=== PATIENT | male | born 1930 | race Caucasian/White ===

== ENCOUNTER 2017-05-27 18:02 | Inpatient (IN) | payer OTHER ==
[~2017-05-27] VITALS: Ht 185.4 cm; Wt 68.0 kg
--- NOTE | ~2017-05-27 | EKG ---
[place] [address] [address] [facility] [place] [address] ELECTROCARDIOGRAM REPORT Name: LUIS PEARSON Room #: 411-P ADM IN M.R.#: [id number] Admission: 05/27/17 Attend Phys: Moses Dennis DO Discharge: Date of : 32 Report #: [id number] THIS REPORT FOR: //name// [facility] ED Test Date: 2017-05-27 Test Time: 18:41:55 Pat Name: LUIS PEARSON Department: Room: 411 Gender: M [employer]: YUMIKO : 1930 Requested By: Lopez Mazariegos Order Number: [id number] MD: Tiago Corral Measurements Intervals [place] Rate: 116 P: AL: QRS: 114 QRSD: 99 T: 77 QT: 332 QTc: 462 Interpretive Statements Atrial fibrillation Premature supraventricular complexes Poor R wave progression No previous ECGs available for comparison Electronically Signed On 05-28-2017 14:28:12 FINANCIAL INSTITUTION PRESIDENT by Tiago Corral [email or web address] <ELECTRONICALLY SIGNED> By: Tiago Corral MD, [facility] 05/28/17 1428 1841 1841 Tiago Corral MD, FACC /EPI
--- NOTE | ~2017-05-27 | EKG ---
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
[2017-05-27 18:03] VITALS: BP 151/86
[2017-05-27] MEDS ORDERED: CHILDREN'S ASPI81 M1 PO (18:21)
[2017-05-27] MEDS ORDERED: DUREZOL5 ML OPHTHALMIC (18:22)
[2017-05-27] MEDS ORDERED: COMBIGAN EYE DR10 ML OPHTHALMIC (18:22)
[2017-05-27] MEDS ORDERED: PULMICORT0.5 MG/22 INH (18:22)
[2017-05-27] MEDS ORDERED: LATANOPROST 0.2.5 ML OPHTHALMIC (18:25)
[2017-05-27] MEDS ORDERED: TOPROL XL25 MG PO (18:25)
[2017-05-27] MEDS ORDERED: FLOMAX0.4 MG PO (18:26)
[2017-05-27] MEDS ORDERED: SIMVASTATIN40 MG PO (18:26)
[2017-05-27] MEDS ORDERED: SPIRIVA INH (18:26)
[2017-05-27 18:35] LABS: HEMATOCRIT 43.6 % (42.0-52.0); HEMOGLOBIN 14.9 gm/dL (14.0-18.0); MCH 32.4 pg (26.0-34.0); MCHC 34.2 g/dL (28.0-37.0); MCV 94.7 fL (80.0-100.0); PLATELET COUNT 239 thou/uL (150-400); RDW 14.4 % (10.5-14.5); WBC 14.8 thou/uL (4.0-11.0)
[2017-05-27 18:50] LABS: ABSOLUTE NEUTROPHILS 12.7 thou/uL (1.4-8.2); ATYPICAL LYMPHS 1 %
[2017-05-27 18:51] LABS: ALBUMIN 3.2 g/dL (3.4-5.0); BUN 23 mg/dL (7-18); CALCIUM 8.9 mg/dL (8.5-10.1); CREATININE 0.9 mg/dL (0.7-1.3); GLUCOSE 123 mg/dL (74-106); MAGNESIUM 2.2 mg/dL (1.8-2.4); SGOT 27 U/L (15-37); SGPT 26 U/L (30-65); TOTAL BILIRUBIN 0.8 mg/dL (<0.1-1.0); TOTAL PROTEIN 7.1 g/dL (6.4-8.2); TROPONIN-I < 0.04 ng/mL (<0.06)
[2017-05-27 18:56] LABS: ANION GAP 7 mmol/L (7-16); CHLORIDE 93 mmol/L (98-107); CO2 31 mmol/L (21-32); POTASSIUM 3.4 mmol/L (3.5-5.1); SODIUM 131 mmol/L (136-145)
[2017-05-27 19:00] LABS: BE(vivo) 4.1 mmol/L (-2 to +3); HCO3 28.3 mmol/L (22.0-26.0); PCO2 41.1 mmHg (35.0-45.0); PO2 72.5 mmHg (80.0-100.0); pH 7.456 (7.360-7.450); sO2 95.3 % (92.0-98.0)
[2017-05-27 20:00] VITALS: BP 169/83
[2017-05-27 20:08] VITALS: BP 127/82
[2017-05-27 20:13] VITALS: BP 128/75
[2017-05-28 04:00] VITALS: BP 141/68
[2017-05-28 08:05] VITALS: BP 165/81
[2017-05-28 09:43] LABS: CREATININE 0.8 mg/dL (0.7-1.3); POTASSIUM 3.9 mmol/L (3.5-5.1)
[2017-05-28 09:50] LABS: BE(vivo) 2.6 mmol/L (-2 to +3); HCO3 25.9 mmol/L (22.0-26.0); PCO2 35.8 mmHg (35.0-45.0); pH 7.477 (7.360-7.450)
[2017-05-28 16:35] VITALS: BP 139/72
[2017-05-28 21:05] VITALS: BP 120/66
[2017-05-29 00:05] VITALS: BP 132/75
[2017-05-29 08:00] VITALS: BP 148/89
[2017-05-29 09:48] LABS: HEMATOCRIT 40.7 % (42.0-52.0); HEMOGLOBIN 13.6 gm/dL (14.0-18.0); MCH 31.9 pg (26.0-34.0); MCHC 33.3 g/dL (28.0-37.0); MCV 95.7 fL (80.0-100.0); RBC 4.25 mil/uL (4.50-6.00); RDW 13.9 % (10.5-14.5); WBC 12.9 thou/uL (4.0-11.0)
[2017-05-29 09:55] LABS: CALCIUM 8.2 mg/dL (8.5-10.1); CREATININE 0.6 mg/dL (0.7-1.3); POTASSIUM 3.7 mmol/L (3.5-5.1)
[2017-05-29 19:40] VITALS: BP 148/72
[2017-05-29 20:15] VITALS: BP 154/77
[2017-05-30 04:09] VITALS: BP 148/82
[2017-05-30 06:18] LABS: HEMATOCRIT 36.6 % (42.0-52.0); HEMOGLOBIN 12.6 gm/dL (14.0-18.0); MCH 32.1 pg (26.0-34.0); MCHC 34.3 g/dL (28.0-37.0); MCV 93.4 fL (80.0-100.0); PLATELET COUNT 272 thou/uL (150-400); RBC 3.92 mil/uL (4.50-6.00); RDW 14.2 % (10.5-14.5); WBC 12.6 thou/uL (4.0-11.0)
[2017-05-30 06:42] LABS: ALBUMIN 2.4 g/dL (3.4-5.0); CALCIUM 8.2 mg/dL (8.5-10.1); CREATININE 0.6 mg/dL (0.7-1.3); POTASSIUM 4.2 mmol/L (3.5-5.1); TOTAL BILIRUBIN 0.3 mg/dL (<0.1-1.0); TOTAL PROTEIN 5.1 g/dL (6.4-8.2)
[2017-05-30 09:23] LABS: ABSOLUTE NEUTROPHILS 11.6 thou/uL (1.4-8.2)
[2017-05-30 09:28] VITALS: BP 144/75
[2017-05-30 15:27] VITALS: BP 128/65
[2017-05-30 19:25] VITALS: BP 134/74
[2017-05-31 04:00] VITALS: BP 115/66
[2017-05-31 07:56] VITALS: BP 111/57
[2017-05-31 16:11] VITALS: BP 141/63
[2017-05-31 20:00] VITALS: BP 137/75
[2017-06-01 04:00] VITALS: BP 132/75
[2017-06-01 08:49] VITALS: BP 107/64
[2017-06-01] MEDS ORDERED: DOXYCYCLINE HYC50 MG PO (10:44)
[2017-06-01] MEDS ORDERED: PREDNISONE 20 M20 MG PO (10:45)
[2017-06-01 12:35] VITALS: BP 107/64
[2017-06-01 15:24] VITALS: BP 107/64
== END 2017-06-01 16:05 | disposition home health service (06) | DRG 189 ==
LOC: ER 18:02 → 4N 19:34 → EROBS 19:34 → 4N 21:19 → ENTRNSPT 06-01 15:52 → EDTRNSPTSTS 06-01 15:53 → 4N 06-01 16:05
PROVIDERS: Emergency Medicine; Internal Medicine; Nurse Practitioner Acute Care; Nurse Practitioner Family
DX: J96.21 Acute and chronic respiratory failure with hypoxia (principal); J44.1 Chronic obstructive pulmonary disease with (acute) exacerbation; D72.829 Elevated white blood cell count, unspecified; F17.210 Nicotine dependence, cigarettes, uncomplicated; E78.5 Hyperlipidemia, unspecified; H40.9 Unspecified glaucoma; I10 Essential (primary) hypertension; Z79.899 Other long term (current) drug therapy; Z88.8 Allergy status to other drugs, medicaments and biological substances; Z86.73 Personal history of transient ischemic attack (TIA), and cerebral infarction without residual deficits; Z79.82 Long term (current) use of aspirin
CPT/HCPCS: 10790

== ENCOUNTER 2018-12-23 13:37 | Inpatient (IN) | payer OTHER ==
[~2018-12-23] VITALS: Ht 182.9 cm; Wt 52.7 kg
[~2018-12-23 13:37] MED LIST: CHILDREN'S ASPI81 M1 PO; COMBIGAN EYE DR10 ML OPHTHALMIC; DOXYCYCLINE HYC50 MG PO; DUREZOL5 ML OPHTHALMIC; FLOMAX0.4 MG PO; LATANOPROST 0.2.5 ML OPHTHALMIC; PREDNISONE 20 M20 MG PO; PULMICORT0.5 MG/22 INH; SIMVASTATIN40 MG PO; SPIRIVA INH; TOPROL XL25 MG PO
[2018-12-23 13:38] VITALS: BP 119/56
[2018-12-23 13:57] LABS: BASOPHILS 0.3 % (0.0-2.0); EOSINOPHILS 0.7 % (0.0-3.0); HEMATOCRIT 38.5 % (42.0-52.0); HEMOGLOBIN 12.4 gm/dL (14.0-18.0); LYMPHOCYTES 9.2 % (24.0-44.0); MCH 30.7 pg (26.0-34.0); MCHC 32.2 g/dL (28.0-37.0); MCV 95.4 fL (80.0-100.0); MONOCYTES 8.8 % (1.0-8.0); PLATELET COUNT 318 thou/uL (150-400); RBC 4.04 mil/uL (4.50-6.00); RDW 15.8 % (10.5-14.5); WBC 8.6 thou/uL (4.0-11.0)
[2018-12-23 14:16] LABS: ANION GAP 1 mmol/L (7-16); BUN 27 mg/dL (7-18); CALCIUM 9.4 mg/dL (8.5-10.1); CHLORIDE 98 mmol/L (98-107); CO2 37 mmol/L (21-32); CREATININE 0.6 mg/dL (0.7-1.3); GLUCOSE 88 mg/dL (74-106); POTASSIUM 4.4 mmol/L (3.5-5.1); SODIUM 136 mmol/L (136-145)
[2018-12-23 14:26] LABS: ALBUMIN 2.4 g/dL (3.4-5.0); SGOT 24 U/L (15-37); SGPT 13 U/L (30-65); TOTAL BILIRUBIN 0.5 mg/dL (<0.1-1.0); TOTAL PROTEIN 6.7 g/dL (6.4-8.2); TROPONIN-I <0.06 ng/mL (<0.06)
[2018-12-23 15:12] LABS: BE(vivo) 11.4 mmol/L (-2 to +3); HCO3 38.9 mmol/L (22.0-26.0); PO2 70.8 mmHg (80.0-100.0); sO2 93.3 % (92.0-98.0)
[2018-12-23 15:13] LABS: PCO2 67.3 mmHg (35.0-45.0)
[2018-12-23] MEDS ORDERED: LISINOPRIL10 MG PO (15:55)
[2018-12-23] MEDS ORDERED: COZAAR 25 MG TA25 M1 PO (15:55)
[2018-12-23 16:12] LABS: URINE BILIRUBIN NEGATIVE (Negative); URINE BLOOD TRACE (Negative); URINE CLARITY CLEAR; URINE COLOR YELLOW; URINE GLUCOSE-RANDOM* NEGATIVE (Negative); URINE KETONES NEGATIVE (Negative); URINE LEUKOCYTES NEGATIVE (Negative); URINE NITRITE NEGATIVE (Negative); URINE PROTEIN (DIPSTICK) NEGATIVE (Negative); URINE UROBILINOGEN 0.2 E.U./dl (0.2-1.0)
[2018-12-23 23:08] VITALS: BP 95/59
[2018-12-23 23:25] VITALS: BP 93/52
[2018-12-23 23:50] VITALS: BP 94/60
--- NOTE | 2018-12-24 02:45 | NUR ---
ADMITTED PATIENT TO ROOM PER CART. PATIENT ON 8L/HFNC WITH O2 SAT 82%-85%, REFUSING BIPAP. FAMILY STATES HE SATS MID 80'S AT HOME AND NORMAL BP IS IN 90'S. ORIENTED TO ROOM AND FLOOR POLICIES. CONSENTS SIGNED. EXPLAINED RF INTERVERONCE AND NEED FOR RUNNERS. VOICED UNDERSTANDING AND CONSENT SIGNED. DAUGHTERS GONE HOME FOR NOC. PATIENT USES ME MAIL ORDER FOR MEDICATIONS. SEE ADMISSION FOR ASSESMENT. NOTED RALES IN LEFT BASE. COCCYX RED BUT IS BLANCHABLE. PATIENT CAN TURN SELF AND WALKS AT HOME. NOTED 2+ EDEMA TO LEFT LEG AND 1+ EDEMA TO RIGHT LEG. SKIN FLAKEY AND DRY. DAUGHTER STATES NOT SURE LAST TIME RECIEVED BATH. VOIDING PER URINAL PAST LASIX GIVEN IN ER. 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 RESTING QUIETLY AT THIS TIME PAST EATING HS SNACK.
[2018-12-24 04:09] VITALS: BP 95/53
[2018-12-24 07:30] VITALS: BP 117/55
--- NOTE | 2018-12-24 09:28 | EKG ---
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: : 1930 Requested By: Luis Dang Order Number: [id number] MD: Tiago Corral Measurements Intervals [place] Rate: 88 P: 27 MI: 151 QRS: -88 QRSD: 96 T: 77 QT: 372 QTc: 450 Interpretive Statements Sinus rhythm Atrial and ventricular premature complexes Left anterior fascicular block Poor R wave progression Compared to ECG 05/29/2017 20:06:52 Left anterior fascicular block now present Electronically Signed On 12-24-2018 9:27:47 CDT by Tiago Corral [email or web address] ��������������������������������������������� <ELECTRONICALLY SIGNED> ���������������������������������������� By: Tiago Corral MD, [facility] ��������������������������������������������� 12/24/18 0927 1346 1346 Tiago Corral MD, [facility] /EPI
[2018-12-24 10:07] LABS: HEMATOCRIT 33.5 % (42.0-52.0); HEMOGLOBIN 10.8 gm/dL (14.0-18.0); MCH 30.2 pg (26.0-34.0); MCHC 32.1 g/dL (28.0-37.0); MCV 93.9 fL (80.0-100.0); RBC 3.56 mil/uL (4.50-6.00); RDW 15.4 % (10.5-14.5); WBC 22.4 thou/uL (4.0-11.0)
[2018-12-24 10:10] LABS: BE(vivo) 13.5 mmol/L (-2 to +3); HCO3 40.6 mmol/L (22.0-26.0); PO2 80.4 mmHg (80.0-100.0); pH 7.411 (7.360-7.450); sO2 95.6 % (92.0-98.0)
[2018-12-24 10:19] LABS: CALCIUM 9.1 mg/dL (8.5-10.1); CREATININE 0.8 mg/dL (0.7-1.3); MAGNESIUM 2.1 mg/dL (1.8-2.4); POTASSIUM 4.1 mmol/L (3.5-5.1)
[2018-12-24 10:42] LABS: PCO2 65.4 mmHg (35.0-45.0)
[2018-12-24 11:16] VITALS: BP 106/61
[2018-12-24] MEDS ORDERED: LASIX 20 MG TAB20 MG PO (13:10)
[2018-12-24] MEDS ORDERED: GUAIFENESIN PO (13:13)
[2018-12-24] MEDS ORDERED: PROTONIX40 M2 PO (13:16)
[2018-12-24] MEDS ORDERED: XALATAN2.5 ML OPHTHALMIC (13:16)
[2018-12-24] MEDS ORDERED: FLOMAX0.4 MG PO (13:17)
--- NOTE | 2018-12-24 13:47 | NUR ---
ASSESSMENT: CM REVIEWED CHART AND MET WITH PATIENT AND HIS TWO DAUGHTERS REBEKAH AND MAIA AT THE BEDSIDE. REBEKAH LIVES LOCALLY AND MAIA LIVES IN [place], [place] BUT VISITS MONTHLY. [facility]. PT LIVES IN A [place] ALONE. REBEKAH REPORTS GOING THERE DAILY TO CHECK ON PATIENT OFTEN AND STATES HE HAS NEIGHBORS THAT VISIT HIM DAILY ALSO. PT HAS A WHEELCHAIR AT HOME WELL HOME OXYGEN. THEY STATE PATIENT IS LEANING MORE TOWARDS HOSPICE AND KNOW THAT IS WHAT HE WOULD WANT AND ARE WANTING TO SEE IF HE WOULD QUALIFY FOR THE [facility] THEY HAVE HAD RELATIVES WHO HAD BEEN THERE. CM NOTIFIED [facility] AT [facility] AND SENT REFERRAL. CM WILL CONTINUE TO FOLLOW TO ASSIST NEEDED.
[2018-12-24 15:42] VITALS: BP 122/70
[2018-12-24 19:11] VITALS: BP 107/60
--- NOTE | 2018-12-24 20:02 | NUR ---
ASSUMED PATIENT CARE AT 0700. A/O X4. COFUSED SOMETIMES. REFUSED BIPAP. PATIENT ON 8-10L /NC . NOTED BLOODY URINE. POOR APPETITE. DENIES PAIN. BLE 2+ EDEMA. FAMILY AT BEDSIDE. NOT TOWARDS POC GOALS.
[2018-12-25 04:09] VITALS: BP 116/68
[2018-12-25 05:10] LABS: HEMATOCRIT 31.5 % (42.0-52.0); HEMOGLOBIN 10.3 gm/dL (14.0-18.0); MCH 30.9 pg (26.0-34.0); MCHC 32.7 g/dL (28.0-37.0); MCV 94.5 fL (80.0-100.0); RBC 3.34 mil/uL (4.50-6.00); RDW 15.6 % (10.5-14.5); WBC 18.9 thou/uL (4.0-11.0)
[2018-12-25 05:31] LABS: ANION GAP < 0 mmol/L (7-16); BUN 37 mg/dL (7-18); CALCIUM 8.8 mg/dL (8.5-10.1); CHLORIDE 95 mmol/L (98-107); CO2 42 mmol/L (21-32); CREATININE 0.6 mg/dL (0.7-1.3); GLUCOSE 99 mg/dL (74-106); POTASSIUM 4.6 mmol/L (3.5-5.1); SODIUM 135 mmol/L (136-145)
--- NOTE | 2018-12-25 06:11 | NUR ---
FOLLOWING POC WITH IVPB ANTIBIOTICS FOR PT. PT URINE IS RED TINGED. PT IS FUSSY ABOUT ALARMS GOING OFF ON IV AND CONTINOUS PULSE OX. PT O2 SATS WERE IN MID TO LOW 80'S. 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 CALLED RT AND SHE MOVED PT'S O2 TO 15L AND OXYGEN SATURATION IS HIGH 90'S. HOSPICE HOUSE WILL BE HERE TODAY FOR EVAL AROUND 1000. HOURLY ROUNDING.
[2018-12-25 07:12] VITALS: BP 116/56
--- NOTE | 2018-12-25 10:41 | NUR ---
ON-GOING ASSESSMENT:CRISTIANE FROM [facility] CAME TO EVAL PATIENT AND HE IS APPROPRIATE FOR THE HOSPICE HOUSE. PT AND FAMILY WISH TO PROCEED AND GO TO [facility]. CHOICE OF VENDOR FORM COMPLETED. CRISTIANE THE [facility] LEFT BEDSIDE RN WITH THE NUMBER TO CALL REPORT. CM NOTIFIED SYSTEMS NAVIGATOR THAT THEY WOULD LIKE TO ARRANGE AMBULANCE TRNASPORTATION FOR 1200 IF POSSIBLE. D/C WINDOW DRAPER IS SETTING UP TRANSPORT AND FAXING ORDERS. CM PLACED OUTSIDE DNR FORM ON FRONT OF CHART. FAMILY REPORT NO FURTHER QUESTIONS FROM CM AT THIS TIME.
--- NOTE | 2018-12-25 12:39 | NUR ---
DISCHARGE ORDERS RECEIVED. PATIENT DISCHARGING TO [facility]. [facility] TO TRANSPORT PATIENT, 1200 HOURS. DISCHARGE ORDERS FAXED TO [facility] INTAKE, VERIRIED RECEIVED. FAMILY NOTIFIED AT BEDSIDE. UNIT RN NOTIFIED AND CONTACT NUMBER PROVIDED FOR REPORT.
--- NOTE | 2018-12-25 12:59 | NUR ---
PT is A&OX2 ( person and place), pt is continuing High flow cannula o2 12-15l/min/nc to keep o2sat at 91-95%, pt had pain medication at 1010am, pt's family stay at pt's bedside ,RN has giving report at 1150am, pt was discharged to Hospice house about 1230pm .
--- NOTE | 2018-12-26 19:23 | HC ---
[facility] [place] [place] [address] CONSULTATION Name: LUIS PEARSON Room #: 350-P [facility] IN M.R.#: [id number] Admission: 12/23/18 ������������������ Attend Phys: Steven Harry MD Discharge: 12/25/18 ������������������ Date of : 32 Report #: [id number] THIS REPORT FOR: //name// CC: FAM unknown Steven Harry DATE OF SERVICE: 12/24/2018 REFERRING PHYSICIAN: Steven Harry M.D. REASON FOR REFERRAL: Acute on chronic respiratory failure. HISTORY OF PRESENT ILLNESS: The patient is an 88-year-old white male who was brought to the ED with increasing dyspnea. A pulmonary consultation was requested. The patient is a poor historian. Other complaints through the medical records include progressive cough, lower extremity edema, weakness. He has a poor appetite and has also lost moderate amount of weight. PAST MEDICAL HISTORY: Notable for COPD, hypertension, coronary artery disease, glaucoma. PAST SURGICAL HISTORY: Includes eye surgery for glaucoma, lumbar surgery, hiatal hernia repair. ALLERGIES: CYCLOBENZAPRINE, reactions unspecified. MEDICATIONS: List reviewed. This include aspirin, Combigan eyedrops 5 mL b.i.d., Pulmicort 0.5 mg nebulized b.i.d. Durezol 5 mL ophthalmic drops b.i.d. Latanoprost LA 2.5 mL ophthalmic drop once a day. Toprol-XL 25 mg p.o. b.i.d. Zocor 40 mg once a day, Spiriva 1 capsule once a day, lisinopril 10 mg once a day, losartan 100 mg once a day. FAMILY HISTORY: Noncontributory. SOCIAL HISTORY: The patient continues to smoke about a pack a day. He denies any alcohol use. He has a daughter who looks in after the patient. REVIEW OF SYSTEMS: Deferred as he is a poor historian. PHYSICAL EXAMINATION: GENERAL: He is awake, appears to be in mild distress, very cachectic, weak. VITAL SIGNS: Temperature is 98 degrees Fahrenheit, pulse is 90, respiratory rate is 28, blood pressure 110/55 mmHg, saturation is 98%. HEENT: Normocephalic, atraumatic. [facility] [address] [place] [address] CONSULTATION Name: LUIS PEARSON Room #: 350-P [facility] IN .R.#: [id number] Admission: 12/23/18 ������������������ Attend Phys: Steven Harry MD Discharge: 12/25/18 ������������������ Date of : 32 Report #: [id number] NECK: Supple, without lymphadenopathy or thyromegaly. CHEST: Breath sounds are poor due to poor effort. No obvious wheezes or rales. CARDIOVASCULAR: Normal S1, S2. No murmurs or gallop. There is no JVD, no carotid bruit. Pulses are 2+/4+ bilaterally. ABDOMEN: Soft, nontender, no organomegaly or masses felt. GENITOURINARY: Deferred. RECTAL: Deferred. EXTREMITIES: There is no edema, cyanosis or clubbing. MUSCULOSKELETAL: Notable for moderate muscle atrophy, severe cachexia. LABORATORY DATA: Portable chest x-ray shows hyperexpansion, small left-sided pleural effusion. Electrolytes are normal. WBC 22,400, hemoglobin is 10.0, platelets are normal. Arterial blood gas revealed pH 7.39, pCO2 of 67, pO2 is 40 on 4 liters of O2. IMPRESSION: 1. Vlpdy-wi-ffxkuvq hypercapnic hypoxic respiratory failure due to severe chronic obstructive pulmonary disease. 2. Tobacco abuse. 3. Profound cachexia, malnutrition with progressive muscle weakness and debility. 4. Encephalopathy, toxic, metabolic. 5. Medical directive, DNR. RECOMMENDATION: Agree with current treatment including corticosteroids, bronchodilators and broad-spectrum antibiotics. Also, agree with possible hospice care. Thank you for the consultation. ��������������������������������������������� <ELECTRONICALLY SIGNED> ���������������������������������������� By: Martell Hardy MD ��������������������������������������������� 12/26/18 1923 1823 1204 Martell Hardy MD /nt
== END 2018-12-25 12:33 | disposition hospice, inpatient (51) | DRG 189 ==
LOC: ER 13:37 → 3W 15:29 → EROBS 15:29 → 3W 23:33
PROVIDERS: Emergency Medicine; Internal Medicine Pulmonary Disease; ADMIT Internal Medicine
DX: J96.21 Acute and chronic respiratory failure with hypoxia (principal); E43 Unspecified severe protein-calorie malnutrition; G92 Toxic encephalopathy; J44.1 Chronic obstructive pulmonary disease with (acute) exacerbation; E46 Unspecified protein-calorie malnutrition; Z68.1 Body mass index [BMI] 19.9 or less, adult; E78.5 Hyperlipidemia, unspecified; I25.10 Atherosclerotic heart disease of native coronary artery without angina pectoris; I10 Essential (primary) hypertension; H40.9 Unspecified glaucoma; F17.210 Nicotine dependence, cigarettes, uncomplicated; Z66 Do not resuscitate; J96.22 Acute and chronic respiratory failure with hypercapnia; Z60.2 Problems related to living alone; Z91.19 Patient's noncompliance with other medical treatment and regimen; I25.2 Old myocardial infarction; Z95.5 Presence of coronary angioplasty implant and graft; Z79.899 Other long term (current) drug therapy; Z79.82 Long term (current) use of aspirin; Z88.8 Allergy status to other drugs, medicaments and biological substances
CPT/HCPCS: 10879